=== PATIENT | female | born 1975 | race Caucasian/White ===

== ENCOUNTER → 2020-04-08 10:35 | Outpatient (CLI) | payer OTHER, SELFPAY ==
--- NOTE | ~2020-04-08 | XR_ITS ---
EXAMINATION: XR hip RT min 2V DATE: 04/08/2020 10:56 INDICATION: Right hip pain. TECHNIQUE: 2 views of right hip were obtained. COMPARISON: None. FINDINGS: Bone alignment is normal. No fracture. There is mild right hip osteoarthritis. There is an intrauterine device in expected position. IMPRESSION: 1. Mild right hip osteoarthritis. Reviewed, dictated and finalized at location B. TER
== END ==
PROVIDERS: PCP Family Medicine; Visit Provider Physician Assistant
DX: M16.11 Unilateral primary osteoarthritis, right hip (principal)
CPT/HCPCS: 73502

== ENCOUNTER → 2020-04-29 07:42 | Outpatient (CLI) | payer OTHER, SELFPAY ==
--- NOTE | ~2020-04-29 | US_ITS ---
US abdomen limited INDICATION: Abnormal liver function tests PROCEDURE: Realtime right upper abdominal ultrasound. COMPARISON: No prior studies for comparison. FINDINGS: The pancreas is normal without focal mass or pancreatic ductal dilation. Liver echotexture is normal without focal mass or intrahepatic biliary dilatation. There is normal directional flow i n the portal vein. Gallbladder surgically absent. Common bile duct measures 3 mm. No sonographic Frances's sign. IMPRESSION: 1: Unremarkable limited abdominal ultrasound postcholecystectomy. Reviewed, dictated and finalized at location B. 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
== END ==
PROVIDERS: PCP Family Medicine; Visit Provider Family Medicine
DX: R74.8 Abnormal levels of other serum enzymes (principal)
CPT/HCPCS: 76705

== ENCOUNTER 2020-08-08 15:56 | Outpatient (CLI) | payer OTHER, SELFPAY ==
[2020-08-08 16:23] LABS: Hematocrit 41.6 % (37.0-47.0); Hemoglobin 14.2 g/dL (12.0-15.0); Mean Corpuscular HGB Conc 34.1 g/dl (32-36); Mean Corpuscular Hemoglobin 31.1 pg (26-34); Mean Corpuscular Volume 91.2 fl (80-100); Mean Platelet Volume 9.4 fl (7.4-10.4); Platelet Count Result 375 k/mm3 (150-375); Red Blood Count 4.56 M/mm3 (4.2-5.4); Red Cell Distribution Width 12.7 % (11.5-14.5); White Blood Count 8.4 K/mm3 (4.5-10.0)
[2020-08-08 16:32] LABS: INR 0.9; Prothrombin Time 12.5 Seconds (11.1-14.7)
[2020-08-10 11:19] LABS: Hepatitis C Viral RNA PCR 226000 IU/mL
[2020-08-12 03:38] LABS: HCV Genotype, LiPA 1b
[2020-08-23 18:37] LABS: ALT 47 U/L (6-29); Alpha-2-Macroglobulin 228 mg/dL (106-279); Apolipoprotein A1 165 mg/dL (101-198); Fibrosis Stage F0; GGT 26 U/L (3-55); Haptoglobin 160 mg/dL (43-212); Necroinflammat Act Grade A0-A1; Total Bilirubin 0.3 mg/dL (0.2-1.2)
== END 2020-08-08 15:57 | disposition home or self-care (01) ==
LOC: ANHLAB 15:57
PROVIDERS: PCP Family Medicine; Visit Provider Internal Medicine Gastroenterology
DX: R76.9 Abnormal immunological finding in serum, unspecified (principal)
CPT/HCPCS: 36415; 81596; 85027; 85610; 87522

== ENCOUNTER → 2020-10-03 16:04 | Outpatient (CLI) | payer OTHER, SELFPAY ==
--- NOTE | ~2020-10-03 | MM_ITS ---
EXAMINATION: MM screening [facility] BI w allie HISTORY: Screening mammogram TECHNIQUE: Craniocaudal and mediolateral oblique 3-D tomosynthesis images were obtained and synthetic 2-D images were generated. CAD analysis was submitted and interpreted. COMPARISON: 11/30/2017, 11/19/2017 BREAST PARENCHYMAL COMPOSITION: The breasts are heterogeneously dense, which may obscure small masses . FINDINGS: There is no evidence of suspicious mass, calcification, or architectural distortion to sugg est malignancy in either breast. There has been no suspicious interval change. IMPRESSION: 1. No mammographic evidence of malignancy. 2. Recommend routine screening mammography in one year. BI-RADS Category 1: Negative Reviewed, dictated and finalized at location A.
== END ==
PROVIDERS: PCP Family Medicine; Visit Provider Physician Assistant
DX: Z12.31 Encounter for screening mammogram for malignant neoplasm of breast (principal)
CPT/HCPCS: 77063; 77067

== ENCOUNTER 2021-01-30 08:44 | Outpatient (CLI) | payer OTHER, SELFPAY ==
[2021-01-30 10:02] LABS: Alanine Aminotransferase 21 U/L (4-35); Albumin Level 4.9 g/dL (3.5-5.1); Alkaline Phosphatase 53 U/L (38-126); Anion Gap 10 mmol/L (8-16); Aspartate Amino Transferase 29 U/L (14-36); Bilirubin,Total 0.6 mg/dL (0.2-1.3); Blood Urea Nitrogen 12 mg/dL (7-17); Calcium 9.3 mg/dL (8.4-10.2); Carbon Dioxide 23 mmol/L (22-30); Chloride 103 mmol/L (98-107); Estimated Glomerular Filt Rate > 60; Glucose 101 mg/dL (65-110); Potassium 4.2 mmol/L (3.4-5.0); Sodium 136 mmol/L (137-145)
[2021-02-02 18:30] LABS: Hepatitis C RNA, Quant PCR <15 IU/mL
== END 2021-01-30 08:45 | disposition home or self-care (01) ==
LOC: ANHLAB 08:47
PROVIDERS: PCP Family Medicine; Visit Provider Internal Medicine Gastroenterology
DX: B19.20 Unspecified viral hepatitis C without hepatic coma (principal)
CPT/HCPCS: 36415; 80053; 87522

== ENCOUNTER 2021-05-19 01:06 | Day surgery (SDC) | payer OTHER, SELFPAY ==
[2021-05-19 06:25] VITALS: BP 115/81; PULSE 105; RESP 18; TEMP 36.9; O2SAT 97
[2021-05-19] MEDS: LACTATED RINGERS 1,000 ML 150 ML IV CONT (06:27)
--- NOTE | 2021-05-19 07:14 | PM.HPGS ---
History of Present Illness History of Present Illness Consent: Risks, benefits, and alternatives have been discussed and questions answered. Patient agrees to proceed with procedure. Chief complaint: neoplasm screening Narrative: Mercedez Wynne is a 45 year old female here for first screening colonoscopy Review of Systems Constitutional: Constitutional: Denies headache(s) and Denies weakness Eyes: Eyes: Denies blurry vision ENT: Reports Normal hearing present, Denies headache(s) and Denies neck pain Cardiovascular: Cardiovascular: Denies chest pain and Denies dyspnea Respiratory: Respiratory: Denies dyspnea Gastrointestinal: Gastrointestinal: Reports no additional gastrointestinal complaints Genitourinary: Genitourinary: Denies dysuria Musculoskeletal: Musculoskeletal: Denies neck pain Integumentary/Breasts: Skin/Breast: Denies dry skin Neurologic: Reports Normal hearing present, Denies headache(s) and Denies weakness Psychiatric: Psychiatric: Denies anxiety Endocrine: Endocrine: Denies change in body appearance Hematologic/Lymphatic: Hematologic/Lymphatic: Denies easy bleeding Allergic/Immunologic: Allergic/Immunologic: Denies urticaria PMF Past Medical History Medical History (Updated 01/30/21 @ 08:35 by John Muñoz MD) Anxiety Colon cancer screening Hepatitis Family History Family History Father Family history of cardiovascular disease Mother Family history of malignant neoplasm Family history of lymphoma Grandparent Carcinoma of colon Social History Social History (Updated 01/30/21 @ 08:23 by aVnessa Arriaza CMA) Smoking status: Current every day smoker Tobacco type: cigarettes Alcohol intake: current Alcohol use details: 2 drinks monthly Substance use: never Living arrangements: with family Spiritual care concerns: No Meds Home Medications and Allergies Home Medications Medication Instructions Recorded Confirmed Type alprazolam 1 mg tablet 1 mg PO TID PRN #270 tablet 01/28/21 04/02/21 Rx citalopram 40 mg PO DAILY 04/02/21 04/02/21 History multivit with min-folic acid 1 tablet PO DAILY 04/02/21 04/02/21 History [Adult One Daily Multivitamin] trazodone 50 mg PO HS 04/02/21 04/02/21 History valacyclovir [Valtrex] 500 mg PO TID 04/02/21 04/02/21 History Allergies Allergy/AdvReac Type Severity Reaction Status Date / Time No Known Allergies Allergy Verified 05/19/21 06:24 Vital Signs Vital Signs - 24 hr 05/19/21 06:25 Temperature 98.4 F Pulse Rate 105 H Respiratory Rate 18 Blood Pressure 115/81 Pulse Oximetry 97 Exam Const: General: comfortable and no acute distress HENMT: General nose exam: Normal nares present Eyes: General: appearance normal, both eyes and all related structures Neck: Neck: no JVD Resp: Auscultation: clear to auscultation bilaterally Cardio: Rate: regular rate Rhythm: regular rhythm GI: Inspection: non-distended GI Palp: Yes Soft to palpation Skin: General skin exam: normal color Neuro: General: gait normal Speech: normal speech Extrem: General: normal to inspection Psych: Mental Status: mental status grossly normal Assessment and Plan Assessment and plan (1) Colon cancer screening: Code(s): Z12.11 - Encounter for screening for malignant neoplasm of colon Status: Acute Assessment and Plan: colonoscopy
--- NOTE | 2021-05-19 07:23 | WPDANESEPPF ---
Anes - Initial Pre Proc Eval Procedure: Operation Date: 05/19/21 07:30 Proposed Procedures p Screening Colonoscopy - John Muñoz MD Date/Time: 05/19/21 07:23 Surgeon: John Muñoz MD Pre Op Diagnosis: neoplasm screening Patient Data Age: 45 Gender: F Height: 1.65 m Weight: 91.6 kg Last Vital Signs Temp 98.4 F 05/19/21 06:25 Pulse 105 H 05/19/21 06:25 Resp 18 05/19/21 06:25 BP 115/81 05/19/21 06:25 Pulse Ox 97 05/19/21 06:25 Allergies Allergy/AdvReac Type Severity Reaction Status Date / Time No Known Allergies Allergy Verified 05/19/21 06:24 Home Medications Medication Instructions Recorded Confirmed Type alprazolam 1 mg tablet 1 mg PO TID PRN #270 tablet 01/28/21 04/02/21 Rx citalopram 40 mg PO DAILY 04/02/21 04/02/21 History multivit with min-folic acid 1 tablet PO DAILY 04/02/21 04/02/21 History [Adult One Daily Multivitamin] trazodone 50 mg PO HS 04/02/21 04/02/21 History valacyclovir [Valtrex] 500 mg PO TID 04/02/21 04/02/21 History Patient hx anesthesia problems: none Family hx anesthesia problems: none Results Review: All pre-operative results and documents have been reviewed as part of the pre-operative evaluation. [facility] Past Medical History Medical History (Updated 01/30/21 @ 08:35 by John Muñoz MD) Anxiety Colon cancer screening Hepatitis Family History Family History Father Family history of cardiovascular disease Mother Family history of malignant neoplasm Family history of lymphoma Grandparent Carcinoma of colon Social History Social History (Updated 01/30/21 @ 08:23 by Vanessa Arriaza CMA) Smoking status: Current every day smoker Tobacco type: cigarettes Alcohol intake: current Alcohol use details: 2 drinks monthly Substance use: never Living arrangements: with family Spiritual care concerns: No Anes - Eval Final PreProcedure Day of Procedure 02/28/22 07:23 Patient weight: obese Heart: regular rate and rhythm Lungs: clear to auscultation Airway: Mallampati scale class II Neurological: alert and oriented Last oral intake: >/= 8 hours ASA classification: II Emergent: no Anesthetic plan: proceed Anesthesia type and monitoring: general GIVS and standard monitoring Results Review: All pre-operative results and documents have been reviewed as part of the pre-operative evaluation. Informed Consent: The patient's anesthetic plan and its attendant risks and benefits were discussed with the patient/family/POA. Questions were solicited and answers provided to the satisfaction of the patient/family/POA.
[2021-05-19 07:41] VITALS: BP 116/75; PULSE 91; RESP 19; O2SAT 94
[2021-05-19 07:51] VITALS: BP 112/68; PULSE 91; RESP 13; O2SAT 94
[2021-05-19 08:01] VITALS: BP 114/74; PULSE 85; RESP 20; O2SAT 97
== END 2021-05-19 08:05 | disposition home or self-care (01) ==
PROVIDERS: PCP Family Medicine; Visit Provider Internal Medicine Gastroenterology
PROC: 0DJD8ZZ Inspection of Lower Intestinal Tract, Via Natural or Artificial Opening Endoscopic (ICD-10-PCS; CPT 45378; principal; 2021-05-19 07:30)
DX: Z12.11 Encounter for screening for malignant neoplasm of colon (principal); F41.9 Anxiety disorder, unspecified; K75.9 Inflammatory liver disease, unspecified; E66.9 Obesity, unspecified; Z68.33 Body mass index [BMI] 33.0-33.9, adult; F17.210 Nicotine dependence, cigarettes, uncomplicated
CPT/HCPCS: 45378; J2704; J7120

== ENCOUNTER → 2021-10-15 16:04 | Outpatient (CLI) | payer OTHER, SELFPAY ==
--- NOTE | ~2021-10-15 | MM_ITS ---
EXAMINATION: MM screening [facility] BI w allie HISTORY: Screening mammogram TECHNIQUE: Craniocaudal and mediolateral oblique 3-D tomosynthesis images were obtained and synthetic 2-D images were generated. CAD analysis was submitted and interpreted. COMPARISON: 10/03/2020 bilateral screening mammogram 02/06/2019 limited left breast ultrasound 07/07/2018 limited left breast ultrasound 11/30/2017 diagnostic left mammogram and limited left breast ultrasound examination 11/19/2017 bilateral screening mammogram BREAST PARENCHYMAL COMPOSITION: The breasts are heterogeneously dense, which may obscure small masses . FINDINGS: There is no evidence of suspicious mass, calcification, or architectural distortion to sugg est malignancy in either breast. There has been no suspicious interval change. IMPRESSION: 1. No mammographic evidence of malignancy. 2. Recommend routine screening mammography in one year. BI-RADS Category 1: Negative Reviewed, dictated and finalized at location A.
== END ==
PROVIDERS: PCP Physician Assistant; Visit Provider Physician Assistant
DX: Z12.31 Encounter for screening mammogram for malignant neoplasm of breast (principal)
CPT/HCPCS: 77063; 77067

== ENCOUNTER 2022-11-09 08:56 | Outpatient (CLI) | payer OTHER, SELFPAY ==
[2022-11-09 11:39] LABS: Basophils Percent Auto 0.4 % (0.2-1.2); Eosinophils Absolute Auto 0.1 K/mm3 (0-0.3); Eosinophils Percent Auto 1.7 % (0-4.4); Hematocrit 41.4 % (37.0-47.0); Hemoglobin 13.3 g/dL (12.0-15.0); Immature Granulocyte Absolute 0.02 K/mm3 (0.00-0.031); Immature Granulocyte Percent A 0.3 % (0-0.5); Lymphocytes Absolute Auto 1.96 K/mm3 (0.9-3.2); Lymphocytes Percent Auto 27.3 % (18.3-44.2); Mean Corpuscular HGB Conc 32.1 g/dl (32-36); Mean Corpuscular Hemoglobin 30.7 pg (26-34); Mean Corpuscular Volume 95.6 fl (80-100); Mean Platelet Volume 10.2 fl (7.4-10.4); Monocytes Absolute Auto 0.7 K/mm3 (0.1-0.6); Monocytes Percent Auto 10.3 % (2.6-8.5); Neutrophils Absolute Auto 4.3 K/mm3 (1.3-6.7); Platelet Count Result 332 k/mm3 (150-375); Red Blood Count 4.33 M/mm3 (4.2-5.4); White Blood Count 7.2 K/mm3 (4.5-10.0)
[2022-11-09 11:48] LABS: Anion Gap 0 mmol/L (8-16); Blood Urea Nitrogen 13 mg/dL (7-17); Calcium 8.9 mg/dL (8.4-10.2); Carbon Dioxide 27 mmol/L (22-30); Chloride 104 mmol/L (98-107); Cholesterol 191 mg/dL (0-200); Estimated Glomerular Filt Rate > 60; Glucose 97 mg/dL (65-110); HDL Direct 47 mg/dL; Potassium 4.6 mmol/L (3.4-5.0); Sodium 131 mmol/L (137-145); Triglycerides 124 mg/dL (<150)
[2022-11-09 11:58] LABS: LDL Cholesterol Direct 113 mg/dL
== END 2022-11-09 08:57 | disposition home or self-care (01) ==
LOC: ANHGOSHLAB 08:59
PROVIDERS: PCP Emergency Medicine; Visit Provider Nurse Practitioner Family
DX: E66.9 Obesity, unspecified (principal); F41.9 Anxiety disorder, unspecified; R76.8 Other specified abnormal immunological findings in serum
CPT/HCPCS: 36415; 80048; 80061; 84443; 85025

== ENCOUNTER → 2023-01-20 15:56 | Outpatient (CLI) | payer OTHER, SELFPAY ==
--- NOTE | ~2023-01-20 | MM_ITS ---
EXAMINATION: MM screening [facility] BI w allie HISTORY: Screening mammogram TECHNIQUE: Craniocaudal and mediolateral oblique 3-D tomosynthesis images were obtained and synthetic 2-D images were generated. CAD analysis was submitted and interpreted. COMPARISON: 10/15/2021, 10/03/2020 bilateral screening mammogram examinations BREAST PARENCHYMAL COMPOSITION: The breasts are heterogeneously dense, which may obscure small masses . FINDINGS: There is no evidence of suspicious mass, calcification, or architectural distortion to sugg est malignancy in either breast. There has been no suspicious interval change. IMPRESSION: 1. No mammographic evidence of malignancy. 2. Recommend routine screening mammography in one year. BI-RADS Category 1: Negative Reviewed, dictated and finalized at location L.
== END ==
PROVIDERS: PCP Student in an Organized Health Care Education/Training Program; Visit Provider Student in an Organized Health Care Education/Training Program
DX: Z12.31 Encounter for screening mammogram for malignant neoplasm of breast (principal)
CPT/HCPCS: 77063; 77067

== ENCOUNTER 2024-02-21 09:13 | Outpatient (CLI) | payer OTHER, SELFPAY ==
--- NOTE | ~2024-02-21 | MMUS_ITS ---
EXAMINATION: MM diagnostic [facility] LT w allie, US breast LT limited HISTORY: Follow-up left breast architectural distortion TECHNIQUE: Additional 3-D tomosynthesis images of the left breast were performed and synthetic 2-D im ages were generated. CAD analysis was submitted and interpreted. High resolution Limited left breast ultrasound was performed. COMPARISON: Comparison to multiple prior studies sequentially, with oldest reviewed study dated 11/19. BREAST PARENCHYMAL COMPOSITION: Dense: The breasts are heterogeneously dense, which may obscure small masses FINDINGS: MAMMOGRAPHIC FINDINGS: There is an irregular shaped mass with architectural distortion and punctate associated internal calc ifications in the lower inner quadrant of the left breast, middle third. This mass is obscured by den se fibroglandular tissue. ULTRASOUND: Limited left breast ultrasound: At 6-7 o'clock, near the areola is an irregular shaped hypoechoic mas s measuring 1.4 x 1 x 1.1 cm with internal calcifications, irregular margins, posterior shadowing and marginal vascularity. At 8:00, 5 cm from the nipple there is a small 3 mm cyst. IMPRESSION: 1. Irregular shaped hypoechoic 1.4 cm left breast mass at C6-7 o'clock near the areola. 2. Ultrasound-guided left breast biopsy recommended. BI-RADS category 4, suspicious findings. Reviewed, dictated and finalized at location B. 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 Irregular shaped hypoechoic 1.4 cm left breast mass at C6-7 o'clock near the areola. 2. Ultrasound-guided left breast biopsy recommended. BI-RADS category 4, suspicious findings.
== END 2024-02-21 09:14 | disposition home or self-care (01) ==
LOC: MICIMG 09:14
PROVIDERS: PCP Student in an Organized Health Care Education/Training Program; Visit Provider Student in an Organized Health Care Education/Training Program
DX: R92.8 Other abnormal and inconclusive findings on diagnostic imaging of breast (principal); N63.24 Unspecified lump in the left breast, lower inner quadrant
CPT/HCPCS: 76642; 77061; 77065; G0279

== ENCOUNTER 2024-03-03 08:11 | Emergency (ER) | payer OTHER, SELFPAY ==
--- NOTE | ~2024-03-03 | XR_ITS ---
EXAMINATION: XR chest 2V 03/03/2024 09:28 INDICATION: Chest pain and shortness of breath. PROCEDURE: 2 view chest COMPARISON: 03/22/2017 FINDINGS: The lungs are clear. The cardiomediastinal silhouette is within normal limits. There are no pleural effusions. There is no pneumothorax suspected. IMPRESSION: 1: NO ACUTE CARDIOPULMONARY DISEASE. Reviewed, dictated and finalized at location B. 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
--- NOTE | 2024-03-03 08:13 | ECG_ITS ---
Test Date: 2024-03-03 08:19:15 Measurements Intervals [place] Rate: 109 P: 31 SD: 139 QRS: 58 QRSD: 81 T: 52 QT: 332 QTc: 448 Interpretive Statements SINUS TACHYCARDIA ABNORMAL RHYTHM ECG No previous ECG available for comparison Electronically Signed On 03-03-2024 18:40:41 PERCH MENDER by Imer Clay M.D.
[2024-03-03 08:54] VITALS: BP 129/89; PULSE 112; RESP 20; TEMP 36.5; O2SAT 99
[2024-03-03 08:59] LABS: Basophils Percent Auto 0.5 % (0.2-1.2); Eosinophils Absolute Auto 0.1 K/mm3 (0-0.3); Eosinophils Percent Auto 2.5 % (0-4.4); Hematocrit 41.1 % (37.0-47.0); Hemoglobin 13.9 g/dL (12.0-15.0); Immature Granulocyte Absolute 0.03 K/mm3 (0.00-0.031); Immature Granulocyte Percent A 0.5 % (0-0.5); Lymphocytes Absolute Auto 1.45 K/mm3 (0.9-3.2); Lymphocytes Percent Auto 25.7 % (18.3-44.2); Mean Corpuscular HGB Conc 33.8 g/dl (32-36); Mean Corpuscular Hemoglobin 31.7 pg (26-34); Mean Corpuscular Volume 93.6 fl (80-100); Mean Platelet Volume 9.3 fl (7.4-10.4); Monocytes Absolute Auto 0.6 K/mm3 (0.1-0.6); Monocytes Percent Auto 9.9 % (2.6-8.5); Neutrophils Absolute Auto 3.4 K/mm3 (1.3-6.7); Neutrophils Percent Auto 60.9 % (45.5-73.1); Platelet Count Result 319 k/mm3 (150-375); Red Blood Count 4.39 M/mm3 (4.2-5.4); Red Cell Distribution Width 12.4 % (11.5-14.5); White Blood Count 5.6 K/mm3 (4.5-10.0)
[2024-03-03 09:14] LABS: Alanine Aminotransferase 19 U/L (6-35); Albumin Level 4.6 g/dL (3.5-5.1); Alkaline Phosphatase 50 U/L (38-126); Anion Gap 8 mmol/L (4-12); Aspartate Amino Transferase 20 U/L (14-36); Bilirubin,Total 0.6 mg/dL (0.2-1.3); Blood Urea Nitrogen 15 mg/dL (7-17); Calcium 9.5 mg/dL (8.4-10.2); Carbon Dioxide 22 mmol/L (22-30); Chloride 108 mmol/L (98-107); Estimated CRCL calculation 94 ml/min; Estimated Glomerular Filt Rate > 60; Glucose 97 mg/dL (65-110); Lipase 78 U/L (23-300); Potassium 3.8 mmol/L (3.4-5.0); Sodium 138 mmol/L (137-145)
[2024-03-03 09:26] LABS: Troponin I < 0.012 ng/mL (0.000-0.034)
[2024-03-03 09:27] LABS: Prothrombin Time 13.1 Seconds (11.1-14.7)
[2024-03-03 10:33] VITALS: BP 122/81; PULSE 88; RESP 16; O2SAT 99
[2024-03-03] MEDS: ALBUTEROL SULFATE (*SP) INHALER 2 PUFF INHALATION (10:37)
--- NOTE | 2024-03-03 18:30 | ED_ITS ---
HPI - SOB/Dyspnea General Chief Complaint: Chest Pain Stated Complaint: chest pain, SOB Time Seen by Provider: 03/03/24 09:29 History of Present Illness HPI Narrative: Patient presenting with shortness of breath that is chronic, has been ongoing for months, has had a lot of negative workup and currently thought process is possible anxiety or GERD. Has chest tightness also. Recently was told that she had a possible breast lump and this is making her even more anxious. Related Data Home Medications ?Medication ?Instructions ?Recorded ?Confirmed ?Last Taken ?Type multivitamin with minerals-folic 1 tablet PO DAILY 04/02/21 02/15/24 05/18/21 History acid 0.4 mg tablet levonorgestrel 21 mcg/24 hr (up to 1 device intrauterine ONCE 01/19/22 02/15/24 Unknown History 8 years) 52 mg intrauterine device (Mirena) Allergies Allergy/AdvReac Type Severity Reaction Status Date / Time No Known Allergies Allergy Verified 02/15/24 09:12 Review of Systems 2 Review of Systems: All systems reviewed & are unremarkable except as noted in HPI and below PMFSH Past Medical History Medical History Anxiety Colon cancer screening Encounter for IUD insertion 03/28/10 Mirena insertion 01/07/16 Mirena removal/insertion Encounter for IUD removal 01/07/16 Mirena removal/insertion Encounter for removal and reinsertion of intrauterine contraceptive device Hepatitis Screening mammogram for breast cancer Surgical History Surgical History H/O gynecological procedure Mirena removal/reinsertion 06/22/2022 History of cholecystectomy History of surgery on right wrist History of tonsillectomy Family History Family History Father Family history of cardiovascular disease Mother Family history of malignant neoplasm Family history of lymphoma Grandparent Carcinoma of colon Social History Social History Smoking status: Current every day smoker Tobacco type: cigarettes Alcohol intake: current Alcohol use details: 2 drinks monthly Substance use: never Lack of Transportation: No Lack of Food: Never True Current Housing: I Have Housing Concerned About Future Housing: No Difficulty Paying Gas/Electric Bills: No Difficulty Paying for Meds: No Education: High School Diploma/GED Difficulty w/ Childcare or Family Care: No Living arrangements: with family Gender identity (if verbalized by the patient): Female Sexual Orientation (if Verbalized by the Patient): Straight or Heterosexual Spiritual care concerns: No Exam 2 Narrative: EXAMINATION OF ORGAN SYSTEMS/BODY AREAS: Constitutional: Vital signs per nursing GENERAL:[No acute distress, non-toxic appearing.] HEAD: Normal with no signs of head trauma. EYES: EOMI, conjunctiva normal ENT: Hearing grossly intact LUNGS: Nonlabored breathing. Diminished lung sounds especially end expiratory HEART: [Regular rate and rhythm] ABD: [Soft], [nontender to palpation] EXT: Normal range of motion SKIN: [No rashes or lesions.] NEURO: [Alert and oriented x 3. No gross focal sensory or strength deficits.] PSYCH: Anxious affect Course Vital Signs Vital signs: Vital Signs Temperature 97.7 F 03/03/24 08:54 Pulse Rate 112 H 03/03/24 08:54 Respiratory Rate 20 03/03/24 08:54 Blood Pressure 129/89 03/03/24 08:54 Pulse Oximetry 99 03/03/24 08:54 Oxygen Delivery Room Air 03/03/24 08:54 Temperature 97.7 F 03/03/24 08:54 Pulse Rate 88 03/03/24 10:33 Respiratory Rate 16 03/03/24 10:33 Blood Pressure 122/81 03/03/24 10:33 Pulse Oximetry 99 03/03/24 10:33 Oxygen Delivery Room Air 03/03/24 08:54 MDM - SOB/Dyspnea MDM Narrative Medical decision making narrative: Patient with history of anxiety presenting here with months of shortness of breath/chest tightness. On exam patient is [tachycardic and is anxious]. I will obtain EKG and chest xray to rule out arrhythmia/ischemia, pneumothorax, or other cause of chest discomfort/shortness of breath. Chest x-ray on my independent interpretation does not show any acute abnormality, no pneumothorax or consolidation. EKG - 12-Lead: Performed at 0819. Interpreted by me. sinus tachycardia. Rate 109. [Normal] axis. AL-interval [normal]. QRS duration [normal]. QTc [normal]. [No ST segment elevation or depression]. [T-wave normal]. Impression: No EKG evidence of acute ischemia or dysrhythmia. No DVT symptoms or risk factors for blood clot. She does have a long smoking history of 25 years and currently feet also, given her diminished lung sounds I will trial some albuterol and steroids, patient agreeable to trying this, have her follow-up with pulmonology. I do feel patient is stable for discharge home at this time with followup to their doctor, and return here if symptoms return or worsen. Agreeable to outpatient management. Lab Data 03/03/24 08:47 03/03/24 08:47 Labs: Lab Results 03/03/24 Range/Units 08:47 WBC 5.6 (4.5-10.0) K/mm3 RBC 4.39 (4.2-5.4) M/mm3 Hgb 13.9 (12.0-15.0) g/dL Hct 41.1 (37.0-47.0) % MCV 93.6 (80-100) fl MCH 31.7 (26-34) pg MCHC 33.8 (32-36) g/dl RDW 12.4 (11.5-14.5) % Plt Count 319 (150-375) k/mm3 MPV 9.3 (7.4-10.4) fl Immature Gran % (Auto) 0.5 (0-0.5) % Neut % (Auto) 60.9 (45.5-73.1) % Lymph % (Auto) 25.7 (18.3-44.2) % [place] % (Auto) 9.9 H (2.6-8.5) % Eos % (Auto) 2.5 (0-4.4) % Baso % (Auto) 0.5 (0.2-1.2) % Lymph # (Auto) 1.45 (0.9-3.2) K/mm3 [place] # (Auto) 0.6 (0.1-0.6) K/mm3 Eos # (Auto) 0.1 (0-0.3) K/mm3 Baso # (Auto) 0.0 (0.0-0.1) K/mm3 Abs Immat Gran (auto) 0.03 (0.00-0.031) K/mm3 Absolute Neuts (auto) 3.4 (1.3-6.7) K/mm3 Absolute Nucleated RBC 0.000 (0.0-0.012) K/mm3 Nucleated RBC % 0.0 (0.0-0.2) % PT 13.1 (11.1-14.7) Seconds INR 1.0 APTT 31.0 (22.3-36.8) Seconds Sodium 138 (137-145) mmol/L Potassium 3.8 (3.4-5.0) mmol/L Chloride 108 H (98-107) mmol/L Carbon Dioxide 22 (22-30) mmol/L Anion Gap 8 (4-12) mmol/L BUN 15 (7-17) mg/dL Creatinine 0.70 (0.7-1.0) mg/dL Estim Creat Clear Calc 94 ml/min Estimated GFR > 60 (59 - ) Glucose 97 (65-110) mg/dL Calcium 9.5 (8.4-10.2) mg/dL Total Bilirubin 0.6 (0.2-1.3) mg/dL AST 20 (14-36) U/L ALT 19 (6-35) U/L Alkaline Phosphatase 50 (38-126) U/L Troponin I < 0.012 (0.000-0.034) ng/mL Total Protein 8.0 (6.3-8.2) g/dL Albumin 4.6 (3.5-5.1) g/dL Lipase 78 (23-300) U/L Discharge Plan Discharge Clinical Impression: Anxiety, Shortness of breath Patient Disposition: Home, Self-Care Condition: Stable Instructions: Shortness of Breath (ED) Additional Instructions: Please follow up with your doctor; you can always return for any further issues. Try the medications as prescribed and try to follow-up with the specialist provided. Can always return to the ER if symptoms worsen. Patient Language: Colombian Prescriptions: New prednisone 20 mg tablet 40 mg PO DAILY 4 Days Qty: 8 0RF albuterol sulfate 90 mcg/actuation HFA aerosol inhaler 2 puff inhalation QID PRN (Reason: shortness of breath or wheezing) Qty: 8.5 0RF No Action Mirena 20 mcg/24 hours (8 yrs) 52 mg intrauterine device 1 device intrauterine ONCE Rx Instructions: as a single dose omeprazole 40 mg capsule,delayed release(DR/EC) 40 mg PO DAILY Qty: 90 1RF sucralfate 100 mg/mL suspension 2 g PO TID PRN (Reason: abdominal pain) Qty: 400 0RF multivit with min-folic acid [Adult One Daily Multivitamin] 0.4 mg Tablet 1 tablet PO DAILY (DME) pen needle, diabetic [Novofine 32] 32 gauge x 1/4 needle See Rx Instructions .Route Qty: 100 2RF Rx Instructions: As directed valacyclovir [Valtrex] 500 mg tablet 500 mg PO TID Qty: 30 3RF citalopram 40 mg tablet 40 mg PO DAILY Qty: 90 1RF trazodone 50 mg tablet 50 mg PO QHS PRN (Reason: sleep) Qty: 90 1RF tirzepatide (weight loss) 15 mg/0.5 mL pen injector 15 mg subcut WEEKLY Qty: 6 3RF alprazolam 1 mg tablet 1 mg PO TID PRN (Reason: anxiety) Qty: 270 0RF Follow-up/Referrals: Boyd Delaney MD [Primary Care Provider] - Vanessa Boudreaux MD [Physician] - 2 Days Boyd Mayorga MD [Physician] - 2 Days Stand Alone Forms: Work/School Release IP
== END 2024-03-03 10:34 | disposition home or self-care (01) ==
PROVIDERS: Emergency Provider Emergency Medicine; PCP Family Medicine
DX: R06.02 Shortness of breath (principal); F41.9 Anxiety disorder, unspecified; F17.210 Nicotine dependence, cigarettes, uncomplicated; Z97.5 Presence of (intrauterine) contraceptive device; Z90.49 Acquired absence of other specified parts of digestive tract; Z79.899 Other long term (current) drug therapy
CPT/HCPCS: 36415; 71046; 80053; 83690; 84484; 85025; 85610; 85730; 93005; 99284

== ENCOUNTER 2024-06-15 16:01 | Outpatient (CLI) | payer OTHER, SELFPAY ==
--- NOTE | ~2024-06-15 | XR_ITS ---
[id number] Ordering provider: Griselda Garcia History: . Malignant neoplasm of lower-inner quadrant of left breast . Comparison: None. FINDINGS: BONES: No acute right rib fracture or fracture of the visualized osseous structures. LUNGS: No effusions or infiltrates. No pneumothorax. SOFT TISSUES: Normal. IMPRESSION: No right rib fracture. No acute cardiopulmonary pathology. Reviewed, dictated and finalized at location A.
== END 2024-06-15 16:02 | disposition home or self-care (01) ==
PROVIDERS: PCP Family Medicine
DX: C50.312 Malignant neoplasm of lower-inner quadrant of left female breast (principal); Z17.0 Estrogen receptor positive status [ER+]
CPT/HCPCS: 71101